=== PATIENT | male | born 1995 | race Caucasian/White ===

== ENCOUNTER 2023-09-08 13:48 | Emergency (ER) | payer SELFPAY ==
--- OUTSIDE RECORDS SUMMARY | 2023-09-08 13:51 | XMS REPORT | Continuity of Care Document ---
Author Name Unknown Address [address] [facility] [address] [place] [address] [facility] Address [address] [facility] [address] [place] [address] Care Team Providers Care Inspector Watch Train Name Role Phone Tolu Roas Attending Clinician Unavailabl e Physician, No Primary or Family Admitting Clinic gil Unavailable Payers Payer Name Policy Type Policy Number Effective Date Expirati on Date Source Allergies, Adverse Reactions, Alerts Allergy Name Allergy Type Status Severity Reaction(s) Onset Date Inactive Date Treating Clinician Comments Source No Known Allergie s DA Active U 2022-05 00:00: 00 [facility] No Known Drug Intolera nces DA Active U 2008-05 00:00: 00 [facility] Encounters Start Date/Time End Date/Time Encounter Type Admission Type Attending Clinicians Care Facility Care Department Encounter ID Source 2023-04-08 20:49:00 2023-04-08 22:36:00 Emergency EM Tolu Rosa [facility] MOISES [id number] 61 [facility] 2020-02-07 00:00:00 2020-02-07 00:00:00 Outpatient [facility] [id number] [facility] Results Test Description Test Time Test Comments Results Result Co mments Source TROP-I HIGH [id number] 21:32:00* Test Item Value Reference Range Interpretation Comme nts TROP-I HIGH SENSITIVITY (test code = TROPIHS) 4 ng/L 0-76 N CAUTION: U nits of the current TROPI-HS test methodology(ng/L) differ from the prior test methodology (ng/mL) by afactor of 1000. 99th Percentile: Females: 0 - 51 ng/L Males: 0 - 76 ng/LThese results were obtained using [employer] TnIHreagent. Results from different methodologies should not becompared to one another as quantitative results may vary bymethod. - XR CHEST 1 [id number] 21:21:00 [facility] N[facility]OMARI Carrasco : 1995 Sex: M FAX: Tolu Celis MD [place]: St: REG Name: TIFFANIBEATRIZ Carrasco [facility] : 1995 Age/S: 27/M [address] [facility] Unit #: [id number] Loc: [address] Phys: [place] [id number] Acct: [id number] Dis Date: Status: REG ER PHONE #: [phone] Exam Date: 04/08/20232115 FAX #: [phone]: Chest Pain EXAMS: CPT CODE: [id number] XR CHEST 1 V 49390 HISTORY: Chest Pain TECHNIQUE: APchest x-ray COMPARISON: None FINDINGS: No airspace consolidation. No pneumothorax or pleural effusion. Normal heart size. Mediastinal silhouette is unremarkable. Visualized osseous structures are grossly intact. IMPRESSION: No radiographic evidence of acute cardiopulmonary process. LOCATION: LP E lectronically Signed by Danielle Pleitez DO on 04/08/2023 at 2120 Reported and signed by: Danielle Pleitez, DOCC: Tolu Rosa MD Technologist: SHAYLEE REED Trnscrd Date/Time/By: 04/08/2023 (2120) : By: [email or web address] PAGE 1 Signed Report FAX: Tolu Rosa MD [place]: St: REG Name: BEATRIZ NIXON [facility] : 1995 Age/S: 27/M [address] [facility] [place] Unit #: [id number] Loc: [address] Phys: [place] [id number] Acct: [id number] Dis Date: Status: REG ER PHONE #: [phone] Exam Date: 04/08/20232115 FAX #: [phone] Reason: Chest Pain EXAMS: CPT CODE: [id number] XR CHEST1 V 09036 (Continued) Orig Print D/T: S: 04/08/2023 (2123) PAGE 2 Signed ReportCBC W/AUTO [id number] 21:15:00* Test Item Value Reference Range Interpretation Comme nts WHITE BLOOD CELL (test code = WBC) 9.2 K/mm3 4.5-11.0 N RED BLOOD CELL (test code = RBC) 3.99 M/mm3 4.40-5.90 L HEMOGLOBIN (test code = HGB) 12.8 gm/dL 13.0-17.0 L HEMATOCRIT (test code = HCT) 36.3 % 36.0-48.0 N MEAN CELL VOLUME (test code = MCV) 91.0 UM3 80.0-94.0 N MEAN CELL HGB (test code = MCH) 32.1 UUG 25.5-32.5 N MEAN CELL HGB CONCETRATION (test code = MCHC) 35.3 gm/dL 29.0-35.5 N RED CELL DISTRIBUTION WIDTH (test code = RDW) 11.7 % 11.5-15.0 N RED CELL DISTRIBUTION WIDTH SD (test code = RDW-SD) 39.2 fL 34.8-50.2 N PLATELET COUNT (test code = PLT) 251 K/mm3 150-400 N MEAN PLATELET VOLUME (test c ode = MPV) 9.5 fl 7.4-10.4 N NEUTROPHIL % (test code = NT%) 76.2 % 49.0-76.0 H IMMATURE GRANULOCYTE % (test code = IG%) 0.3 % 0.0-0.4 N LYMPHOCYTE % (test code = LY%) 17.5 % 23.0-38.0 L MONOCYTE % (test code = MO%) 5.6 % 1.0-10.0 N EOSINOPHIL % (test code = EO%) 0.1 % 1.0-5.0 L BASOPHIL % (test code = BA%) 0.3 % 0.0-1.0 N NUCLEATED RBC % (test code = NRBC%) 0.0 % 0.0-0.1 N NEUTROPHIL # (test code = NT#) 7.0 K/mm3 2.4-6.3 H IMMATURE GRANULOCYTE # (test code = IG#) 0.03 x10 3/uL 0.00-0.07 N LYMPHOCYTE # (test code = LY#) 1.6 K/mm3 1.2-4.0 N MONOCYTE # (test code = MO#) 0.5 K/mm3 0.0-0.6 N EOSINOPHIL # (test code = EO#) 0.0 K/MM3 0.0-0.7 N BASOPHIL # (test code = BA#) 0.0 K/mm3 0.0-0.2 N NUCLEATED RBC # (test code = NRBC#) 0.00 X10 3uL 0.00-0.01 N Notes Date/Time Note Provider Source 2023-04-08 22:21:00 [id number]:21:00 [facility] ([facility])EMERGENCY PROVIDER REPORTREPORT#:[id number] REPORT STATUS: SignedDATE:04/08/23 TIME: 2220 PATIENT: BEATRIZ NIXON UNIT #: [id number]#: [id number] ROOM/BED:AGE: 27 SEX: M PCP PHYS: No Primary or Family PhysicianSERVICE AUTHOR: Tolu Rosa MD * ALL edits or amendments must be made on the electronic/computer document * HPI-General Illness Free Text HPI NotesFree Text HPI [id number] male presents emergency department for her anxiety/panic attackPatient states that he was having a conversation, and states he got very flustered, he felt his heart racing, and felt chest pressure.Patient does have a history of PTSD, states that he was diagnosed when he was [facility] , has not sought any help for PTSD after being discharged from the [employer] as he has never had a panic attack since.Upon arrival patient states that he is feeling better, however his chest discomfort/tightness in his chest does not resolved.No history of ACS or LA in his family, denies any recent fevers chills nausea vomiting or diarrheaDid not take any medication prior to arrival GeneralInitial Greet Date/Time 04/08/232051 PresentationChief Complaint Anxiety Review of Systems ROS StatementsAll systems rev neg except as marked. Past Medical History - AdultStated Complaint ANXIETY ATTACK/CHEST PAIN/STOMACH ACHEAllergiesCoded Allergies:No Known Allergies (04/08/23) Home MedicationsReported MedicationsNo Known Home Medications Calculated Suicide Risk (nurs) No riskSmoking status for patients 13 years old or older: Current every day smoker Physical Exam Vital SignsVital SignsFirst Documented: Result Date Time Pulse Ox 99 04/08 2051 B/P 111/62 04/08 2051 B/P Mean 78 04/08 2051 O2 Delivery Room air 04/08 2051 Temp 37.3 04/08 2051 Pulse 82 04/08 2051 Resp 16 04/08 2051 Last Documented: Result Date Time Pulse Ox 96 04/08 2059 B/P 111/62 04/08 2051 B/P Mean 78 04/08 2051 O2 Delivery Room air 04/08 2051 Temp 37.3 04/08 2051 Pulse 82 04/08 2051 Resp 16 04/08 2051 Review of Vital Signs Reviewed Free Text PE NotesFree Text PE NotesGeneral: A Ox3, well appearing, no apparent distress HEENT: normocephalic, atraumatic, PERRLA, oropharynx non-erythematous, moist oral mucosa Neck: supple, trachea midline, No significant JVD Pulm: nonlabored, clear to auscultation b/l, good air movement CV: regular rate and rhythm, normal S1 and S2, no murmur, 2+ radial and pedal pulses b/l, no pedal edema GI: nondistended, nontender, no rebound tenderness or guarding MSK: no gross deformity, normal range of motion of all extremities Skin: no rash Neuro: CN II-XII intact, full strength and sensation throughout, normal FNF, no pronator drift, steady gait Psych: calm and cooperative Interpretation Diagnostics Lab Results InterpretationResultsLaboratory Tests 04/08/232101:[Embedded Image Not Available]Laboratory Tests: 04/08 2102 Chemistry Sodium (134.0 - 147.0 mmol/l) 137 Potassium (3.6 - 5.2 mmol/L) 3.7 Chloride (98.0 - 107.0 mmol/l) 102 Carbon Dioxide (21.0 - 33.0 mmol/l) 29.4 Anion Gap (0 - 20) 9.3 BUN (7.0 - 18.0 mg/dl) 14 Creatinine (0.60 - 1.30 mg/dL) 1.02 Estimated Creat Clear (>30 mL/min) 107 Glomerular Filtr Rate (mL/min) 102 Glucose (70.0 - 110.0 mg/dl) 120 H Calcium (8.0 - 10.5 mg/dl) 8.1 Troponin I High Sens (0 - 76 ng/L) 4 Hematology WBC (4.5 - 11.0 K/mm3) 9.2 RBC (4.40 - 5.90 M/mm3) 3.99 L Hgb (13.0 - 17.0 gm/dL) 12.8 L Hct (36.0 - 48.0 %) 36.3 MCV (80.0 - 94.0 UM3) 91.0 MCH (25.5 - 32.5 UUG) 32.1 MCHC (29.0 - 35.5 gm/dL) 35.3 RDW (11.5 - 15.0 %) 11.7 Plt Count (150 - 400 K/mm3) 251 MPV (7.4 - 10.4 fl) 9.5 Neut % (Auto) (49.0 - 76.0 %) 76.2 H Lymph % (Auto) (23.0 - 38.0 %) 17.5 L Hughes % (Auto) (1.0 - 10.0 %) 5.6 Eos % (Auto) (1.0 - 5.0 %) 0.1 L Baso % (Auto) (0.0 - 1.0 %) 0.3 Neut # (Auto) (2.4 - 6.3 K/mm3) 7.0 H Lymph # (Auto) (1.2 - 4.0 K/mm3) 1.6 Hughes # (Auto) (0.0 - 0.6 K/mm3) 0.5 Eos # (Auto) (0.0 - 0.7 K/MM3) 0.0 Baso # (Auto) (0.0 - 0.2 K/mm3) 0.0 Absolute Nucleated RBC (0.00 - 0.01 X10 3uL) 0.00 Immature Gran % (0.0 - 0.4 %) 0.3 Nucleated RBC % (0.0 - 0.1 %) 0.0 Immature Gran # (0.00 - 0.07 x10 3/uL) 0.03 Recent Impressions:RADIOLOGY - XR CHEST 1 V 04/08 2116 Report Impression - Status: SIGNED Entered: 04/08/20232123 IMPRESSION: No radiographic evidence of acute cardiopulmonary process. LOCATION: LP Impression By: [email or web address] - Danielle Pleitez, DO Re-Evaluation MDM Free Text MDM NotesAdditional [id number]-rap male presents emergency department for her anxiety/panic attackPatient states that he was having a conversation, and states he got very flustered, he felt his heart racing, and felt chest pressure.Patient does have a history of PTSD, states that he was diagnosed when he was int , has not sought any help for PTSD after being discharged from the [employer] as he has never had a panic attack since.Upon arrival patient states that he is feeling better, however his chest discomfort/tightness in his chest does not resolved.No history of ACS or LA in his family, denies any recent fevers chills nausea vomiting or diarrheaDid not take any medication prior to arrival ROS negative unless otherwise specified in HPI or MDMPatient with history as above presented with anxiety/panic attack. History obtained from patient.Patient was nontoxic, stable. Ambulatory. Exam as above.Vital signs interpreted by me within normal limits.Labs reviewed by me: Unremarkable Imaging independently reviewed by me: UnremarkableReviewed external records. EKG normal sinus rhythm, no ST segment ovation depression, no significant T waveabnormalitiesDifferential diagnoses considered anxiety attack, panic attack, ACS, MIOverall presentation is consistent with panic attackLow suspicion for ACS LA or pneumoniaPatient was treated with IV fluids with improvement in symptoms. Patient ultimately discharged in the emergency department, as the patient had any behavioral health resources/follow-up, patient states he will [facility]. Consideration was given for admission, but the patient was stable for outpatientmanagement.Disposition: Discussed need to follow up diagnostics, including incidental findings. Discharged with instructions to obtain outpatient follow up of patient s symptoms and findings, with strict return precautions if patient develops newor worsening symptoms. ED CourseMedication(s) OrderedMedication(s) Ordered:Electrolytic, Caloric, And Jeane Sig/Yancy Start time Last Medication Dose Route Stop Time Status Admin Sodium Chloride 1,000 ML X1ED STA 04/08 2058 DC 04/08 IV 04/08 Patient Discharge Departure Vital Signs/ConditionVital SignsFirst Documented: Result Date Time Pulse Ox 99 04/08 2051 B/P 111/62 04/08 2051 B/P Mean 78 04/08 2051 O2 Delivery Room air 04/08 2051 Temp 37.3 04/08 2051 Pulse 82 04/08 2051 Resp 16 04/08 2051 Last Documented: Result Date Time Pulse Ox 96 04/08 2059 B/P 111/62 04/08 2051 B/P Mean 78 04/08 2051 O2 Delivery Room air 04/08 2051 Temp 37.3 04/08 2051 Pulse 82 04/08 2051 Resp 16 04/08 2051 All vital signs available at the time of this entry have been reviewed. Clinical ImpressionClinical ImpressionPrimary Impression: Anxiety attack Disposition DecisionDischarge )( Discharged to Home Yes )( Time 222 )( Date 04/08/23 Discharge/Care Plan(Auto) PrescriptionsCurrent Visit ScriptsNo Known Home Medications Patient Instructions ED Anxiety Reaction, ED Panic AttackDeparture FormsEE OR LOW [facility] PCP LIST Discharge NoteI have spoken with the patient and/or caregivers. I have explained the patient'scondition, diagnoses and treatment plan based on the information available to meat this time. I have answered the patient's and/or caregiver's questions and addressed any concerns. The patient and/or caregivers have as good an understanding of the patient's diagnosis, condition and treatment plan as can beexpected at this point. The vital signs have been stable. The patient's condition is stable and appropriate for discharge from the emergency department. The patient will pursue further outpatient evaluation with the primary care physician or other designated or consulting physician as outlined in the discharge instructions. The patient and/or caregivers are agreeable to this planof care and follow-up instructions have been explained in detail. The patient and/or caregivers have received these instructions in written format and have expressed an understanding of the discharge instructions. The patient and/or caregivers are aware that any significant change in condition or worsening of symptoms should prompt an immediate return to this or the closest emergency department or a call to 911. at 1919RPT #:[id number] OF REPORTEDEmergency department [id number]:21:00E.[id number] ilable for patient [id number]:20:08 [facility]
[2023-09-08 14:25] LABS: Absolute Basophils 0.1 K/uL (0-0.5); Absolute Eosinophils 0.1 K/uL (0-0.5); Absolute Lymphocytes (CBC) 1.2 K/uL (0.7-4.9); Absolute Monocytes 0.5 K/uL (0.1-1.3); Absolute Neutrophil 6.4 K/uL (1.8-8.0); Basophils % 0.8 % (0-1.3); Eosinophils % 1.3 % (0-4.4); Hematocrit 38.6 % (39.6-49.0); Hemoglobin 13.2 g/dL (13.6-17.9); Lymphocytes % 14.7 % (15.3-44.8); MCH 32.1 pg (27.0-35.0); MCHC 34.2 g/dL (32.0-36.0); MCV 93.8 fL (80-100); MPV 7.6 fL (7.6-11.3); Monocytes % 5.9 % (3.3-12.3); Neutrophils % 77.3 % (41.7-73.7); Platelets 343 thou/uL (152-406); RBC Red Blood Cell Count 4.11 M/uL (4.33-5.43); Red Cell Distribution Width 12.8 % (12.1-15.2)
[2023-09-08 14:27] LABS: PT Prothrombin Time 12.7 SECONDS (9.5-12.5); Protime INR 1.16
[2023-09-08 14:35] LABS: Barbiturates NEGATIVE (NEGATIVE); Benzodiazepines NEGATIVE (NEGATIVE); Cocaine NEGATIVE (NEGATIVE); METHAMPHETAM NEGATIVE (NEGATIVE); Methadone NEGATIVE (NEGATIVE); Opiates NEGATIVE (NEGATIVE); Phencyclidine NEGATIVE (NEGATIVE); THC Cannibis POSITIVE (NEGATIVE)
[2023-09-08 14:50] LABS: Albumin 3.8 g/dL (3.4-5.0); Anion Gap 7.8 mEq/L (5.0-15.0); Bilirubin Direct 0.1 mg/dL (0-0.2); Bilirubin Indirect, Calculated 0.3 mg/dL (0.2-0.8); Bilirubin Total 0.4 mg/dL (0.2-1.0); Globulin 3.8 g/dL (2.3-3.5); Magnesium 1.7 mg/dL (1.6-2.4); Potassium 3.8 mEq/L (3.5-5.1); Protein, Total 7.6 g/dL (6.4-8.2); Thyroid Stimulating Hormone 0.505 uIU/mL (0.358-3.740)
--- NOTE | 2023-09-08 14:54 | EDPHYS ---
Physician Documentation [facility] Name: Jose Antonio Stafford Age: 27 yrs Sex: Male : 1995 Arrival Date: 09/08/2023 Time: 13:48 Bed DX2 Private MD: ED Physician Singh Gilbert HPI: 09/07 13:53 This 27 yrs old Male presents to ER via Unassigned with complaints of chest pain. sb4 13:53 The patient or guardian reports chest pain that is located primarily in the anterior sb4 chest wall, left. The pain does not radiate. Associated signs and symptoms: Pertinent positives: lightheadedness, shortness of breath. The chest pain is described as a heaviness. Modifying factors: The symptoms are alleviated by nothing. the symptoms are aggravated by anxiety. The patient has experienced similar episodes in the past, a few times, today's symptoms are similar. The patient has not recently seen a physician. 13:54 patient was apparently under arrest and started experiencing chest pain. he states that sb4 this has happened in the past before when he is experiencing anxiety. states that he was supposed to follow up with a travel assistant but does not currently have any health insurance. Historical: - Allergies: 14:49 No Known Allergies; iw ROS: 13:58 Constitutional: Negative for fever, chills, and weight loss, sb4 13:58 Cardiovascular: Positive for chest pain, 13:58 Neuro: Positive for 13:58 All other systems are negative, Exam: 13:58 Constitutional: This is a well developed, well nourished patient who is awake, alert, sb4 and in no acute distress. Head/Face: Normocephalic, atraumatic. Eyes: Extra-ocular motions intact. Periorbital areas with no swelling, redness, or edema. ENT: Mucous membranes moist. Cardiovascular: Regular rate and rhythm with a normal S1 and S2. Respiratory: Lungs have equal breath sounds bilaterally, clear to auscultation and percussion. No rales, rhonchi or wheezes noted. No increased work of breathing, no retractions or nasal flaring. Abdomen/GI: Soft, non-tender, no distension. Skin: Warm, dry with normal turgor. Normal color with no rashes, no lesions, and no evidence of cellulitis. MS/ Extremity: Pulses equal, no cyanosis. Neurovascular intact. Full, normal range of motion. Neuro: Awake and alert, GCS 15, oriented to person, place, time, and situation. Motor strength 5/5 in all extremities. Sensory grossly intact. Vital Signs: 14:43 BP 116 / 84; Pulse 85; Resp 16; Temp 97.2; Pulse Ox 100% on R/A; iw MDM: 13:52 Patient medically screened. sb4 13:58 Differential diagnosis: abnormal EKG, anxiety, chest wall pain, costochondritis, sb4 esophagitis, gastritis, pleurisy, pneumonia. 14:52 Data reviewed: vital signs, nurses notes, EMS record, lab test result(s), EKG, sb4 radiologic studies, and as a result, I will discharge patient. Scoring Tools HEART Score: History: ECG: Age: Risk Factors: No Risk Factors Known (0), Troponin: Total Score = 0. Counseling: I had a detailed discussion with the patient and/or guardian regarding the historical points, exam findings, and any diagnostic results supporting the discharge/admit diagnosis, lab results, radiology results, to return to the emergency department if symptoms worsen or persist or if there are any questions or concerns that arise at home. 09/07 13:53 Order name: Basic Metabolic Panel; Complete Time: 14:52 4 09/07 13:53 Order name: CBC with Diff; Complete Time: 14:36 09/07 13:53 Order name: D-Dimer; Complete Time: 14:32 4 09/07 13:53 Order name: LFT's; Complete Time: 14:52 4 09/07 13:53 Order name: Magnesium; Complete Time: 14:52 4 09/07 13:53 Order name: NT PRO-BNP; Complete Time: 14:52 4 09/07 13:53 Order name: PT-INR; Complete Time: 14:32 sb4 09/07 13:53 Order name: Troponin HS; Complete Time: 14:52 sb4 09/07 13:53 Order name: TSH; Complete Time: 14:52 sb4 09/07 13:56 Order name: ETOH Level; Complete Time: 14:36 sb4 09/07 13:56 Order name: UDS; Complete Time: 14:36 4 09/07 13:53 Order name: Cardiac monitoring; Complete Time: 14:44 sb4 09/07 13:53 Order name: EKG - Nurse/Tech; Complete Time: 14:42 sb4 09/07 13:53 Order name: IV Saline Lock; Complete Time: 14:42 sb4 09/07 13:53 Order name: Labs collected and sent; Complete Time: 14:42 sb4 09/07 13:53 Order name: O2 Per Protocol; Complete Time: 14:43 sb4 09/07 13:53 Order name: O2 Sat Monitoring; Complete Time: 14:43 sb4 EC:44 Rate is 80 beats/min. Rhythm is regular, Sinus Rhythm. TN interval is shortened at 86 sb4 msec. QRS interval is normal at 102 msec. QT interval is normal at 360 msec. No Q waves. T waves are Normal. No ST changes noted. Clinical impression: No evidence of ischemia. Interpreted by me. Reviewed by me. Administered Medications: 13:54 CANCELLED (Physician Discretion): aspirinchewable tablet 324 mg PO once; 81 mg tablets sb4 x 4 Disposition: 17:26 Co-signature as Attending Physician, Singh Gilbert MD I reviewed the patient's care rn provided by the Advanced Practice Provider and agree with the diagnosis and treatment plan. Disposition Summary: 09/08/23 14:53 Discharge Ordered Notes: Location: Home sb4 Problem: new sb4 Symptoms: are resolved sb4 Condition: Stable sb4 Diagnosis - Chest pain, unspecified sb4 Followup: sb4 - With: Emergency Department - When: As needed - Reason: Trouble breathing, Worsening of condition Discharge Instructions: - Discharge Summary Sheet sb4 - Nonspecific Chest Pain, Adult, Mgpx-uw-Kpub sb4 Forms: - Thank You Letter sb4 - Patient Portal Instructions sb4 - Leadership Thank You Letter sb4 Signatures: Dispatcher [employer] Tatum Villasenor RN RN iw Nieto, Roman, MD MD rn Brown, Sophia, PA-C PAVijay sb4 Corrections: (The following items were deleted from the chart) 13:53 13:53 BASIC METABOLIC PANEL+C.LAB.BRZ ordered. EDMS EDMS 13:53 13:53 CBC+H.LAB.BRZ ordered. EDMS EDMS 13:53 13:53 D-DIMER+COAG.LAB.BRZ ordered. EDMS EDMS 13:53 13:53 HEPATIC FUNCTION+C.LAB.BRZ ordered. EDMS EDMS 13:53 13:53 MAGNESIUM+C.LAB.BRZ ordered. EDMS EDMS 13:53 13:53 PROBNP+C.LAB.BRZ ordered. EDMS EDMS 13:53 13:53 PROTIME (+INR)+COAG.LAB.BRZ ordered. EDMS EDMS 13: 13:53 Troponin High Sensitivity+C.LAB.BRZ ordered. EDMS EDMS 13: 13:53 Chest Single View+RAD.RAD.BRZ ordered. EDMS EDMS 13:54 13:53 Aspirin PO Chewable Tablet 324 mg PO once; 81 mg tablets x 4 ordered. sb4 sb4 13:54 13:54 THYROID STIMULAT HORMONE+C.LAB.BRZ ordered. EDMS EDMS
--- NOTE | 2023-09-08 14:54 | ER ---
Nurse's Notes [facility] Name: Jose Antonio Stafford Age: 27 yrs Sex: Male : 1995 Arrival Date: 09/08/2023 Time: 13:48 Bed DX2 Private MD: Diagnosis: Chest pain, unspecified Presentation: 09/07 13:54 Chief complaint: Patient states: chest pain now resolved, pt was initially in police iw custody. Coronavirus screen: At this time, the client does not indicate any symptoms associated with coronavirus-19. Ebola Screen: Patient negative for fever greater than or equal to 101.5 degrees Fahrenheit, and additional compatible Ebola Virus Disease symptoms Patient denies exposure to infectious person. Patient denies travel to an Ebola-affected area in the 21 days before illness onset. No symptoms or risks identified at this time. 13:54 Acuity: LISANDRO 3 iw 13:54 Method Of Arrival: EMS: [facility] iw Historical: - Allergies: 14:49 No Known Allergies; iw Vital Signs: 14:43 BP 116 / 84; Pulse 85; Resp 16; Temp 97.2; Pulse Ox 100% on R/A; iw ED Course: 13:52 Patient arrived in ED. sb4 13:52 Yuridia Wesley PA-C is [facility]. sb4 13:52 Singh Gilbert MD is Attending Physician. sb4 13:55 Triage completed. iw 13:56 Tatum Alejandra RN is Primary Nurse. iw 14:11 Initial lab(s) drawn, by mt, sent to lab. Urine collected: clean catch specimen, clear. [id number] Maintain EMS IV. Dressing intact. Good blood return noted. Site clean \T\ dry. Gauge \T\ site: 18G LAC. Administered Medications: 13:54 CANCELLED (Physician Discretion): aspirinchewable tablet 324 mg PO once; 81 mg tablets sb4 x 4 Outcome: 14:53 Discharge ordered by . sb4 15:15 Patient left the ED. iw Signatures: Tatum Alejandra RN RN iw Yuridia Wesley PA-C PA-C sb4 Juan Daniel Booth jg11
[2023-09-08 17:33] VITALS: BP 116/84; TEMP 97.2; O2SAT 100
--- NOTE | 2023-09-09 13:38 | EKG ---
Test Date: 2023-09-08 Test Time: 14:38:34 Geriatric Psychiatrist: FAIZAN MEASUREMENT RESULTS: Intervals: Rate: 80 SD: 86 QRSD: 102 QT: 360 QTc: 415 [place]: P: 77 SD: 86 QRS: 90 T: 73 INTERPRETIVE STATEMENTS: Sinus rhythm with short SD Otherwise normal ECG No previous ECG available for comparison Electronically Signed On 09-09-23 13:37:22 CDT by Yeison Vasquez
== END 2023-09-08 15:15 | disposition home or self-care (01) ==
LOC: ER 13:48
DX: R07.89 Other chest pain (principal)
CPT/HCPCS: 36415; 80048; 80076; 80307; 82077; 83735; 83880; 84443; 84484; 85025; 85379; 85610; 93005; 99283